=== PATIENT | male | born 1940 | race Caucasian/White ===

== ENCOUNTER 2016-11-07 17:34 | Emergency (ER) | payer MEDICARE, MEDICAID ==
[2016-11-07 17:35] VITALS: BMI 23.3
--- NOTE | 2016-11-07 19:26 | C.PDOC ---
History Of Present Illness 76 y/o male here for Ativan refill. States that he is taking more than usual because he is not sleeping well; but has not discussed this with his prescriber. Next appointment 11/21/16. No other complaints at this time. Time Seen by Provider: 11/07/16 19:13 Chief Complaint (Nursing): Med Refill History Per: Patient History/Exam Limitations: no limitations Onset/Duration Of Symptoms: Unknown Recent travel outside of the [place]: No Additional History Per: Patient Past Medical History Vital Signs: Last Vital Signs Temp 98.2 F 11/07/16 20:04 Pulse 82 11/07/16 22:15 Resp 18 11/07/16 22:15 BP 152/88 H 11/07/16 22:15 Pulse Ox 98 11/07/16 22:15 - Medical History PMH: Anxiety, Asthma, COPD, Diabetes, Emphysema, HTN, Kidney Stones (L kidney stone) Denies: Alzheimer's Disease, Chronic Kidney Disease - [facility] Procedures INFLUENZA VACCINATION (10/28/14) Family History: States: Unknown Family Hx - Social History Hx Tobacco Use: Yes Hx Alcohol Use: No Hx Substance Use: No - Immunization History Hx Tetanus Toxoid Vaccination: Yes Hx Influenza Vaccination: Yes Hx Pneumococcal Vaccination: Yes Review Of Systems Except As Marked, All Systems Reviewed And Found Negative. Physical Exam - Physical Exam Appears: Non-toxic, No Acute Distress Skin: Warm, Dry Eye(s): bilateral: EOMI Nose: No Epistaxis, No Deformity Oral Mucosa: Moist Neck: Supple Chest: Symmetrical, No Deformity Cardiovascular: Rhythm Regular Respiratory: Normal Breath Sounds Extremity: Normal ROM Neurological/Psych: Oriented x3, Normal Speech ED Course And Treatment O2 Sat by Pulse Oximetry: 100 (RA) Pulse Ox Interpretation: Normal Progress Note: Pt was given ativan 2 mg PO and is now requesting ambulance transport to return home. [facility] contacted by RN for transport Medical Decision Making Medical Decision Making: Patient given Ativan 2mg PO. Checked [facility]: patient given Ativan #60 on 10/22/16. Counseled patient on taking prescribed doses of his medications and instructed to speak with his physician. States that he will speak with the prescriber tomorrow. Disposition - Disposition Referrals: Fern Hawk MD [Primary Care Provider] - Disposition: HOME/ ROUTINE Disposition Time: 19:40 Condition: STABLE Additional Instructions: Please follow up with PMD for management Return to ER if worse Instructions: Benzodiazepine Abuse (ED) - Clinical Impression Clinical Impression: Review of medication, Benzodiazepine abuse - Scribe Statement The provider has reviewed the documentation as recorded by the Scribe Blanca Mena
[2016-11-07 20:06] VITALS: RESP 18; TEMP 98.2
[2016-11-07 22:37] VITALS: BP 152/88; PULSE 82
[2016-11-08 04:29] VITALS: O2SAT 100
== END 2016-11-07 22:37 | disposition home or self-care (01) ==
LOC: C.ER 17:34 → SUPCPDRO 17:34 → C.ER 22:37
DX: F19.10 Other psychoactive substance abuse, uncomplicated (principal)

== ENCOUNTER 2018-02-24 13:01 | Inpatient (IN) | payer MEDICARE, OTHER ==
[2018-02-24 13:01] VITALS: BMI 21.4
[2018-02-24] MEDS ORDERED: Albuterol-Ipratrop 3 mg / 0.5 (3 ml) UD INH STA ×2 (13:20)
[2018-02-24] MEDS ORDERED: MethylPREDNISolone 40 mg Vial IVP STA (13:20)
--- NOTE | 2018-02-24 13:28 | C.PDOC ---
History Of Present Illness 77 year old male with a history of COPD and benzodiazepine use presents to the emergency department with complaints of shortness of breath which started yesterday. Patient reports that he was given Duoneb prior to arrival, and states that his "emphysema was acting up". Patient denies fever, and currently reports chest tightness with no other complaints. pt denies abodminal pain, flank pain, n/v. also in er "requesting something to make me sleep" Time Seen by Provider: 02/24/18 13:12 Chief Complaint (Nursing): Shortness Of Breath History Per: Patient History/Exam Limitations: no limitations Onset/Duration Of Symptoms: Days (1) Current Symptoms Are (Timing): Still Present Quality: Tightness Current Respiratory Medications: Other (Duoneb) Associated Symptoms: Other (shortness of breath, chest tightness). denies: Fever Past Medical History Reviewed: Historical Data, Nursing Documentation, Vital Signs Vital Signs: Last Vital Signs Temp 97.6 F 02/25/18 15:37 Pulse 89 02/25/18 16:23 Resp 20 02/25/18 15:37 BP 165/80 H 02/25/18 18:00 Pulse Ox 99 02/25/18 16:23 - Medical History PMH: Anxiety, Asthma, COPD, Depression, Diabetes, Emphysema, HTN, Kidney Stones Denies: Alzheimer's Disease, Arthritis, CHF, Hypercholesterolemia, Hypothyroidism, Pneumonia, Chronic Kidney Disease, Rheumatoid Arthritis - [facility] Procedures DETOXIFICATION SERVICES FOR SUBSTANCE ABUSE TREATMENT (11/10/16) INFLUENZA VACCINATION (10/28/14) Family History: States: No Known Family Hx - Social History Hx Tobacco Use: Yes Hx Alcohol Use: No Hx Substance Use: Yes - Immunization History Hx Tetanus Toxoid Vaccination: Yes Hx Influenza Vaccination: Yes Hx Pneumococcal Vaccination: Yes Review Of Systems Except As Marked, All Systems Reviewed And Found Negative. Constitutional: Negative for: Fever Cardiovascular: Positive for: Other (chest tightness) Respiratory: Positive for: Shortness of Breath Physical Exam - Physical Exam Appears: Non-toxic, No Acute Distress Skin: Warm, Dry Head: Atraumatic, Normacephalic Eye(s): bilateral: Normal Inspection Nose: Normal Oral Mucosa: Moist Neck: Normal, Supple Chest: Symmetrical Cardiovascular: Rhythm Regular, No Murmur Respiratory: No Rales, No Rhonchi, Wheezing (scattered, bilaterally) Gastrointestinal/Abdominal: Normal Exam, Soft, No Tenderness, No Guarding, No Rebound Neurological/Psych: Oriented x3, Normal Speech, Normal Cognition ED Course And Treatment - Laboratory Results Result Diagrams: 02/24/18 14:24 02/24/18 13:51 ECG Rhythm: Sinus Rhythm (94bpm ) ECG Interpretation: Normal Interpretation Of ECG: Sinus rhythm at 94bpm with a first degree AV block, otherwise normal EKG. Medical Decision Making Medical Decision Making: Plan: VBG Shock Panel EKG BNP CMP Troponin CBC PTT Prothrombin Time CXR One View Duoneb 3ml INH Solu-Medrol 125mg IVP Nebulizer Treatment Urinalysis suspect copd- mild la, luekocytosis, no sirs criteria no code sepsis. dr galaviz bedside. ua positive. antibiotics dosed. no pain, abdominal pain/flank pain. dr galaviz bedside accepts for admission. Disposition - Disposition Disposition: HOSPITALIZED Disposition Time: 17:08 Condition: STABLE - Clinical Impression Clinical Impression: COPD (chronic obstructive pulmonary disease), Urinary tract infection - Scribe Statement The provider has reviewed the documentation as recorded by the Scribe (Chadwick Porras) Provider Attestation: All medical record entries made by the Scribe were at my direction and personally dictated by me. I have reviewed the chart and agree that the record accurately reflects my personal performance of the history, physical exam, medical decision making, and the department course for this patient. I have also personally directed, reviewed, and agree with the discharge instructions and disposition. Decision To Admit - Pt Status Changed To: Hospital Disposition Of: Observation - . Bed Request Type: Telemetry Admitting Physician: Arden Galaviz Patient Diagnosis: COPD (chronic obstructive pulmonary disease), Urinary tract infection
[2018-02-24] MEDS ORDERED: Albuterol-Ipratrop 3 mg / 0.5 (3 ml) UD ONE (13:43)
[2018-02-24 13:52] LABS: VENOUS BLOOD GAS BASE EXCESS -1.4 mmol/L (0.0-2.0); VENOUS BLOOD GAS PCO2 36 mmHg (40-60); VENOUS BLOOD GAS PO2 38 mm/Hg (30-55); VENOUS BLOOD PH 7.41 (7.32-7.43)
[2018-02-24] MEDS ORDERED: Sodium Chloride 0.9% 500 ML IV ONE ×2 (13:54→14:06)
[2018-02-24 14:07] LABS: INR 1.1; PROTHROMBIN TIME 11.9 SECONDS (9.7-12.2)
[2018-02-24 14:13] LABS: ALB/GLOB RATIO 1.2 (1.0-2.1); ALBUMIN 4.1 g/dL (3.5-5.0); ALT/SGPT 22 U/L (21-72); AST/SGOT 31 U/L (17-59); BLOOD UREA NITROGEN 26 mg/dL (9-20); CALCIUM 9.1 mg/dl (8.6-10.4); GFR AFRICAN-AMERICAN > 60; GFR NON-AFRICAN AMERICAN > 60
[2018-02-24 14:19] LABS: B-TYPE NATRIURETIC PEPTIDE 477 pg/mL (0-900)
[2018-02-24 14:28] LABS: BASO # 0.2 K/uL (0.0-0.2); BASO % 1.4 % (0.0-2.0); EOS # 0.1 K/uL (0.0-0.7); EOS % 0.5 % (0.0-4.0); LYMPH # 3.1 K/uL (1.0-4.3); LYMPH % 26.1 % (20.0-40.0); MEAN CELL VOLUME 93.7 fL (80.0-94.0); MEAN CORPUSCULAR HEMOGLOBIN 32.4 pg (27.0-31.0); MEAN CORPUSCULAR HGB CONC 34.6 g/dL (33.0-37.0); MEAN PLATELET VOLUME 7.9 fL (7.2-11.7); MONO # 0.8 K/uL (0.0-0.8); MONO % 7.1 % (0.0-10.0); NEUT # 7.6 K/uL (1.8-7.0); NEUT % 64.9 % (50.0-75.0); RBC 3.08 Mil/uL (4.40-5.90); RED CELL DISTRIBUTION WIDTH 15.1 % (11.5-14.5); WHITE BLOOD COUNT 11.7 K/uL (4.8-10.8)
[2018-02-24] MEDS ORDERED: cefTRIAXone IV 1 gm in Dextros 50 ML IVPB STA (14:34)
[2018-02-24] MEDS ORDERED: Azithromycin 500 MG in Sodium Chloride 0.9% 250 ML IVPB STA (14:34)
[2018-02-24] MEDS ORDERED: cefTRIAXone IV 1 gm in Dextros 0 ML IVPB ONE (14:44)
[2018-02-24] MEDS ORDERED: DiphenhydrAMINE 50 mg/ml Inj IVP STA (15:36)
[2018-02-24] MEDS ORDERED: DiphenhydrAMINE 50 mg/ml Inj ONE (15:40)
[2018-02-24 16:23] LABS: SQUAMOUS EPITHIAL < 1 /hpf (0-5); URINE BACTERIA MANY (<OCC); URINE BILIRUBIN NEGATIVE (NEGATIVE); URINE BLOOD NEGATIVE (NEGATIVE); URINE CLARITY Hazy (Clear); URINE COLOR Yellow (YELLOW); URINE GLUCOSE (UA) 1+ mg/dL (Normal); URINE LEUKOCYTE ESTERASE 3+ Leu/uL (Negative); URINE PROTEIN NEGATIVE (NEGATIVE); URINE UROBILINOGEN NORMAL mg/dL (0.2-1.0)
--- NOTE | 2018-02-24 16:30 | RAD ---
PROCEDURE: CHEST RADIOGRAPH, 1 VIEW HISTORY: chest pain COMPARISON: Comparison chest dated 12/16/2014. FINDINGS: Study is slightly limited due to patient rotation to the left side LUNGS: Clear. PLEURA: No pneumothorax or pleural fluid seen. CARDIOVASCULAR: Heart size mildly enlarged OSSEOUS STRUCTURES: No significant abnormalities. Re- demonstrated are the old healed right posterior rib fractures. VISUALIZED UPPER ABDOMEN: Normal. OTHER FINDINGS: None. IMPRESSION: No acute infiltrates
[2018-02-24] MEDS ORDERED: Home Med 1 UNIT (Atorvastatin [Lipitor] 40 MG) PO SCH (16:45)
[2018-02-24] MEDS: (Novolog) Insulin Aspart, Recombinant 100 u/ml 10 ml vial SC SCH ×2 (17:01→21:39)
[2018-02-24] MEDS ORDERED: (Novolog) Insulin Aspart, Recombinant 100 u/ml 10 ml vial ONE (17:25)
[2018-02-24] MEDS: Albuterol-Ipratrop 3 mg / 0.5 (3 ml) UD INH SCH (20:08)
[2018-02-25] MEDS: Albuterol-Ipratrop 3 mg / 0.5 (3 ml) UD INH SCH ×4 (07:48→20:28)
[2018-02-25] MEDS: (Novolog) Insulin Aspart, Recombinant 100 u/ml 10 ml vial SC SCH ×4 (08:30→21:39)
[2018-02-25] MEDS ORDERED: METFORMIN HCL 1000 MG PO SCH (10:00)
[2018-02-25] MEDS: Enoxaparin 40 mg Syringe SC SCH (12:40)
--- NOTE | 2018-02-26 06:55 | HP ---
HISTORY OF PRESENT ILLNESS: Mr. Jones was admitted to the hospital with chief complaint of shortness of breath, cough, weakness, anxiety, and insomnia. The patient has COPD, history of diabetes. The patient came to the ER, advised admission. with insulin ____. SOCIAL HISTORY: The patient is an ex-smoker. PHYSICAL EXAMINATION GENERAL: The patient is awake, alert, and oriented. VITAL SIGNS: Temperature 98, pulse 90. HEENT: Within normal limits. NECK: Supple. CHEST: Symmetrical. HEART: Regular. ABDOMEN: Soft. EXTREMITIES: No edema. IMPRESSION: The patient suffers from chronic obstructive pulmonary disease, bronchitis, anxiety, depression. The patient to get bed rest and supportive care, bronchodilators. Arden Clemons MD
[2018-02-26] MEDS: (Novolog) Insulin Aspart, Recombinant 100 u/ml 10 ml vial SC SCH ×5 (07:37→21:40)
[2018-02-26] MEDS: Albuterol-Ipratrop 3 mg / 0.5 (3 ml) UD INH SCH ×4 (07:44→19:43)
[2018-02-26] MEDS: Enoxaparin 40 mg Syringe SC SCH (09:22)
[2018-02-26] MEDS ORDERED: Pneumococcal 23-Valent Vaccine IM ONE (10:00)
[2018-02-26 11:17] LABS: BASO % 0.4 % (0.0-2.0); EOS # 0.1 K/uL (0.0-0.7); EOS % 0.6 % (0.0-4.0); LYMPH # 3.5 K/uL (1.0-4.3); LYMPH % 32.7 % (20.0-40.0); MEAN CELL VOLUME 94.8 fL (80.0-94.0); MEAN CORPUSCULAR HEMOGLOBIN 32.5 pg (27.0-31.0); MEAN CORPUSCULAR HGB CONC 34.3 g/dL (33.0-37.0); MEAN PLATELET VOLUME 8.3 fL (7.2-11.7); MONO % 9.5 % (0.0-10.0); NEUT # 6.1 K/uL (1.8-7.0); NEUT % 56.8 % (50.0-75.0); RBC 3.68 Mil/uL (4.40-5.90); RED CELL DISTRIBUTION WIDTH 15.5 % (11.5-14.5); WHITE BLOOD COUNT 10.7 K/uL (4.8-10.8)
[2018-02-26 11:34] LABS: ALB/GLOB RATIO 1.4 (1.0-2.1); ALBUMIN 3.9 g/dL (3.5-5.0); ALT/SGPT 31 U/L (21-72); AST/SGOT 20 U/L (17-59); BLOOD UREA NITROGEN 29 mg/dL (9-20); CALCIUM 8.9 mg/dl (8.6-10.4); GFR AFRICAN-AMERICAN > 60; GFR NON-AFRICAN AMERICAN > 60
--- NOTE | 2018-02-26 11:39 | CP.PCM.CON ---
History of Present Illness - History of Present Illness History of Present Illness: 77 year old male with a history of COPD and benzodiazepine use presents to the emergency department with complaints of shortness of breath which started yesterday. Patient reports that he was given Duoneb prior to arrival, and states that his "emphysema was acting up". Patient denies fever, and currently reports chest tightness with no other complaints. pt denies abodminal pain, flank pain, n/v. also in er "requesting something to make me sleep" referred for ID eval + ESBL UTI - Medical History PMH: Anxiety, Asthma, COPD, Depression, Diabetes, Emphysema, HTN, Kidney Stones Denies: Alzheimer's Disease, Arthritis, CHF, Hypercholesterolemia, Hypothyroidism, Pneumonia, Chronic Kidney Disease, Rheumatoid Arthritis - [facility] Procedures DETOXIFICATION SERVICES FOR SUBSTANCE ABUSE TREATMENT (11/10/16) INFLUENZA VACCINATION (10/28/14) Past Patient History - Infectious Disease Hx of Infectious Diseases: None - Past Medical History & Family History Past Medical History?: Yes - Past Social History Smoking Status: Light Smoker < 10 Cigarettes Daily - CARDIAC Hx Congestive Heart Failure: No Hx Hypercholesterolemia: No Hx Hypertension: Yes - PULMONARY Hx Asthma: Yes Hx Chronic Obstructive Pulmonary Disease (COPD): Yes Hx Emphysema: Yes Hx Pneumonia: No - NEUROLOGICAL Hx Alzheimer's Disease: No - HEENT Hx HEENT Problems: No - RENAL Hx Chronic Kidney Disease: No Hx Kidney Stones: Yes - ENDOCRINE/METABOLIC Hx Hypothyroidism: No - HEMATOLOGICAL/ONCOLOGICAL Hx Blood Disorders: No Hx Blood Transfusions: No - INTEGUMENTARY Hx Dermatological Problems: No - MUSCULOSKELETAL/RHEUMATOLOGICAL Hx Arthritis: No Hx Rheumatoid Arthritis: No - GASTROINTESTINAL Hx Gastrointestinal Disorders: No Hx Gastroesophageal Reflux: No - GENITOURINARY/GYNECOLOGICAL Hx Genitourinary Disorders: Yes Hx Incontinence: Yes Hx Prostate Problems: Yes Hx Urinary Tract Infection: Yes - PSYCHIATRIC Hx Anxiety: Yes Hx Depression: Yes Hx Substance Use: Yes - SURGICAL HISTORY Hx Surgeries: Yes Hx Orthopedic Surgery: Yes (15 years ago) - ANESTHESIA Hx Anesthesia: Yes Hx Anesthesia Reactions: No Hx Malignant Hyperthermia: No Meds Allergies/Adverse Reactions: Allergies Allergy/AdvReac Type Severity Reaction Status Date / Time No Known Allergies Allergy Verified 02/24/18 13:17 - Medications Medications: Current Medications Acetaminophen (Tylenol 325mg Tab) 650 mg PO Q6H PRN PRN Reason: Headache Albuterol/Ipratropium (Duoneb 3 Mg/0.5 Mg (3 Ml) Ud) 3 ml INH RQID [facility] Last Admin: 02/26/18 07:44 Dose: 3 ml Amlodipine Besylate (Norvasc) 10 mg PO DAILY [facility] Last Admin: 02/26/18 09:20 Dose: 10 mg Aspirin (Ecotrin) 81 mg PO 0800 [facility] Last Admin: 02/26/18 08:45 Dose: 81 mg Benzonatate (Tessalon Perles) 100 mg PO TID [facility] Last Admin: 02/26/18 09:23 Dose: 100 mg Docusate Sodium (Colace) 100 mg PO DAILY [facility] Last Admin: 02/26/18 09:21 Dose: 100 mg Enoxaparin Sodium (Lovenox) 40 mg SC DAILY [facility] Last Admin: 02/26/18 09:22 Dose: 40 mg Meropenem 1 gm/ Sodium (Chloride) 100 mls @ 100 mls/hr IVPB Q8 [facility] PRN Reason: Protocol Insulin Aspart (Novolog) 0 unit SC ACHS [facility] PRN Reason: Protocol Last Admin: 02/26/18 08:13 Dose: 2 unit Lisinopril (Zestril) 20 mg PO DAILY [facility] Last Admin: 02/26/18 09:51 Dose: 20 mg Lorazepam (Ativan) 1 mg PO Q8 [facility] Last Admin: 02/26/18 05:45 Dose: 1 mg Metformin HCl (Glucophage) 1,000 mg PO DAILY [facility] Last Admin: 02/26/18 09:20 Dose: 1,000 mg Metoprolol Tartrate (Lopressor) 25 mg PO BID [facility] Last Admin: 02/26/18 09:18 Dose: 25 mg Mirtazapine (Remeron) 7.5 mg PO [facility] Last Admin: 02/25/18 21:39 Dose: 7.5 mg Rosuvastatin Calcium (Crestor) 20 mg PO [facility] Last Admin: 02/25/18 21:39 Dose: 20 mg Tamsulosin HCl (Flomax) 0.4 mg PO DAILY [facility] Last Admin: 02/26/18 09:20 Dose: 0.4 mg Physical Exam - Constitutional Appears: No Acute Distress, Chronically Ill - Head Exam Head Exam: ATRAUMATIC, NORMAL INSPECTION, NORMOCEPHALIC - Eye Exam Eye Exam: EOMI, Normal appearance, PERRL Pupil Exam: NORMAL ACCOMODATION, PERRL - ENT Exam ENT Exam: Mucous Membranes Moist, Normal Exam - Neck Exam Neck exam: Positive for: Normal Inspection - Respiratory Exam Respiratory Exam: Clear to Auscultation Bilateral, NORMAL BREATHING PATTERN - Cardiovascular Exam Cardiovascular Exam: REGULAR RHYTHM - GI/Abdominal Exam GI & Abdominal Exam: Normal Bowel Sounds, Soft. absent: Tenderness - Rectal Exam Rectal Exam: NORMAL INSPECTION - Exam Exam: Circumcision, Scrotal Swelling - Extremities Exam Extremities exam: Positive for: normal inspection - Back Exam Back exam: NORMAL INSPECTION - Neurological Exam Neurological exam: Alert, CN II-XII Intact, Normal Gait, Oriented x3, Reflexes Normal - Psychiatric Exam Psychiatric exam: Normal Affect, Normal Mood - Skin Skin Exam: Dry, Intact, Normal Color, Warm Results - Vital Signs Recent Vital Signs: Last Vital Signs Temp 98.7 F 02/26/18 07:00 Pulse 96 H 02/26/18 09:17 Resp 20 02/26/18 07:00 BP 166/79 H 02/26/18 09:18 Pulse Ox 96 02/26/18 07:00 - Labs Result Diagrams: 02/26/18 11:06 02/26/18 11:06 Labs: Laboratory Results - last 24 hr 02/25/18 02/25/18 02/25/18 06:22 11:21 17:36 WBC RBC Hgb Hct MCV MCH MCHC RDW Plt Count MPV Neut % (Auto) Lymph % (Auto) Beckham % (Auto) Eos % (Auto) Baso % (Auto) Neut # (Auto) Lymph # (Auto) Beckham # (Auto) Eos # (Auto) Baso # (Auto) Sodium Potassium Chloride Carbon Dioxide Anion Gap BUN Creatinine Est GFR ( Amer) Est GFR (Non-Af Amer) POC Glucose (mg/dL) 290 H 285 H 150 H Random Glucose Calcium Total Bilirubin AST ALT Alkaline Phosphatase Total Protein Albumin Globulin Albumin/Globulin Ratio 02/25/18 02/26/18 02/26/18 21:17 06:15 11:06 WBC 10.7 RBC 3.68 L Hgb 12.0 D Hct 34.9 L MCV 94.8 H MCH 32.5 H MCHC 34.3 RDW 15.5 H Plt Count 450 H MPV 8.3 Neut % (Auto) 56.8 Lymph % (Auto) 32.7 Beckham % (Auto) 9.5 Eos % (Auto) 0.6 Baso % (Auto) 0.4 Neut # (Auto) 6.1 Lymph # (Auto) 3.5 Beckham # (Auto) 1.0 H Eos # (Auto) 0.1 Baso # (Auto) 0.0 Sodium Potassium Chloride Carbon Dioxide Anion Gap BUN Creatinine Est GFR ( Amer) Est GFR (Non-Af Amer) POC Glucose (mg/dL) 141 H 179 H Random Glucose Calcium Total Bilirubin AST ALT Alkaline Phosphatase Total Protein Albumin Globulin Albumin/Globulin Ratio 02/26/18 11:06 WBC RBC Hgb Hct MCV MCH MCHC RDW Plt Count MPV Neut % (Auto) Lymph % (Auto) Beckham % (Auto) Eos % (Auto) Baso % (Auto) Neut # (Auto) Lymph # (Auto) Beckham # (Auto) Eos # (Auto) Baso # (Auto) Sodium 139 Potassium 3.9 Chloride 103 Carbon Dioxide 24 Anion Gap 17 BUN 29 H Creatinine 0.8 Est GFR ( Amer) > 60 Est GFR (Non-Af Amer) > 60 POC Glucose (mg/dL) Random Glucose 192 H Calcium 8.9 Total Bilirubin 0.5 AST 20 ALT 31 Alkaline Phosphatase 72 Total Protein 6.8 Albumin 3.9 Globulin 2.8 Albumin/Globulin Ratio 1.4 Assessment & Plan (1) Urinary tract infection Status: Acute (2) COPD (chronic obstructive pulmonary disease) Status: Chronic Priority: Low - Assessment and Plan (Free Text) Assessment: RECC EVAL, IV MER[facility] CONTACT [facility] FOR ESBL
[2018-02-26] MEDS: Meropenem 1 GM in Sodium Chloride 0.9% 100 ML IVPB SCH ×2 (13:45→21:43)
--- NOTE | 2018-02-26 16:15 | CP.PCM.PN ---
Subjective - Date & Time of Evaluation Date of Evaluation: 02/26/18 Time of Evaluation: 10:09 - Subjective Subjective: PGY2 Medicine Note for Dr. Clemons Patient seen and examined at bedside this morning. No acute events overnight. Patient is resting comfortably in bed. Patient complains of intermittent right sided flank pain. He is urinating without complaints of increased frequency or pain. He is tolerating his diet. Denies fevers, chills, nausea, vomiting, diarrhea, constipation, chest pain, shortness of breath, palpitations or headaches. PMH: HTN, HLD, DM, BPH PSH: Cardiac cath (negative for blockage), Screw placement for left leg fracture (location unclear) SHx: 1/2 - 1 ppd x 30 years. Denies alcohol, illicits/IVDA Lives alone in [place] Ambulates with a cane for short distances and a walker for longer distances FHx: Mother (renal disease), Father (HTN) Objective - Vital Signs/Intake and Output Vital Signs (last 24 hours): Temp Pulse Resp BP Pulse Ox 98.7 F 95 H 20 166/79 H 96 02/26/18 07:00 02/26/18 14:00 02/26/18 07:00 02/26/18 09:18 02/26/18 07:00 Intake and Output: 02/26/18 02/26/18 06:59 18:59 Intake Total 450 Output Total 700 Balance -700 450 - Medications Medications: Current Medications Acetaminophen (Tylenol 325mg Tab) 650 mg PO Q6H PRN PRN Reason: Headache Albuterol/Ipratropium (Duoneb 3 Mg/0.5 Mg (3 Ml) Ud) 3 ml INH RQID [facility] Last Admin: 02/26/18 13:13 Dose: Not Given Amlodipine Besylate (Norvasc) 10 mg PO DAILY [facility] Last Admin: 02/26/18 09:20 Dose: 10 mg Aspirin (Ecotrin) 81 mg PO 0800 [facility] Last Admin: 02/26/18 08:45 Dose: 81 mg Benzonatate (Tessalon Perles) 100 mg PO TID [facility] Last Admin: 02/26/18 13:46 Dose: 100 mg Docusate Sodium (Colace) 100 mg PO DAILY [facility] Last Admin: 02/26/18 09:21 Dose: 100 mg Enoxaparin Sodium (Lovenox) 40 mg SC DAILY [facility] Last Admin: 02/26/18 09:22 Dose: 40 mg Meropenem 1 gm/ Sodium (Chloride) 100 mls @ 100 mls/hr IVPB Q8 [facility] PRN Reason: Protocol Last Admin: 02/26/18 13:45 Dose: 100 mls/hr Insulin Aspart (Novolog) 0 unit SC ACHS [facility] PRN Reason: Protocol Last Admin: 02/26/18 11:52 Dose: 2 unit Lisinopril (Zestril) 20 mg PO DAILY [facility] Last Admin: 02/26/18 09:51 Dose: 20 mg Lorazepam (Ativan) 1 mg PO Q8 [facility] Last Admin: 02/26/18 13:42 Dose: Not Given Metformin HCl (Glucophage) 1,000 mg PO DAILY [facility] Last Admin: 02/26/18 09:20 Dose: 1,000 mg Metoprolol Tartrate (Lopressor) 25 mg PO BID [facility] Last Admin: 02/26/18 09:18 Dose: 25 mg Mirtazapine (Remeron) 7.5 mg PO HS [facility] Last Admin: 02/25/18 21:39 Dose: 7.5 mg Rosuvastatin Calcium (Crestor) 20 mg PO HS [facility] Last Admin: 02/25/18 21:39 Dose: 20 mg Tamsulosin HCl (Flomax) 0.4 mg PO DAILY [facility] Last Admin: 02/26/18 09:20 Dose: 0.4 mg - Labs Labs: 02/26/18 11:06 02/26/18 11:06 PT 11.9 SECONDS (9.7-12.2) 02/24/18 13:51 INR 1.1 02/24/18 13:51 APTT 20 SECONDS (21-34) L 02/24/18 13:51 - Constitutional Appears: Non-toxic, No Acute Distress - Head Exam Head Exam: ATRAUMATIC - Eye Exam Eye Exam: Normal appearance - ENT Exam ENT Exam: Mucous Membranes Moist - Respiratory Exam Respiratory Exam: Decreased Breath Sounds, Clear to Ausculation Bilateral, NORMAL BREATHING PATTERN. absent: Accessory Muscle Use, Rales, Rhonchi, Wheezes , Respiratory Distress - Cardiovascular Exam Cardiovascular Exam: REGULAR RHYTHM, +S1, +S2 - GI/Abdominal Exam GI & Abdominal Exam: Soft. absent: Distended, Firm, Guarding, Rigid, Tenderness - Extremities Exam Extremities Exam: absent: Calf Tenderness, Pedal Edema - Back Exam Back Exam: CVA tenderness (R). absent: CVA tenderness (L) - Neurological Exam Neurological Exam: Alert, Awake, CN II-XII Intact, Oriented x3 - Psychiatric Exam Psychiatric exam: Normal Affect, Normal Mood - Skin Skin Exam: Dry, Warm Assessment and Plan - Assessment and Plan (Free Text) Plan: COPD Exacerbation CXR 02/24 - No infiltrates noted. Blood Culture: no growth at 48 hours Duoneb 3mL QID Tessalon Perles 100mg PO TID UTI ID consulted, Dr. Martinez - help appreciated Urine Culture (02/24/18): ESBL+ E. Coli Meropenem 1gm IVPB q8h HTN Amlodipine 10 mg PO daily Aspirin 81mg PO daily Lisinopril 20g PO daily Metoprolol Tart 25mg PO BID Diabetes Continue to monitor Hgb A1c 7.2 (09/19/16) Metformin 1,000 mg PO daily HLD Crestor 20mg PO HS BPH Tamsuloin 0.4mg PO daily Prophylactic Care Lovenox 40mg SC daily Continue home Remeron 7.5mg PO HS Ativan 1mg PO q8h Case discussed with Dr. Clemons All medical management per Dr. Kaci Parsons [place] PGY2
[2018-02-26 17:16] LABS: BASO # 0.1 K/uL (0.0-0.2); BASO % 1.1 % (0.0-2.0); EOS # 0.1 K/uL (0.0-0.7); HEMOGLOBIN 12.4 g/dL (12.0-18.0); LYMPH # 3.9 K/uL (1.0-4.3); LYMPH % 34.2 % (20.0-40.0); MEAN CELL VOLUME 94.4 fL (80.0-94.0); MEAN CORPUSCULAR HEMOGLOBIN 32.6 pg (27.0-31.0); MEAN CORPUSCULAR HGB CONC 34.5 g/dL (33.0-37.0); NEUT # 6.2 K/uL (1.8-7.0); NEUT % 54.7 % (50.0-75.0); RBC 3.79 Mil/uL (4.40-5.90); RED CELL DISTRIBUTION WIDTH 15.3 % (11.5-14.5); WHITE BLOOD COUNT 11.4 K/uL (4.8-10.8)
[2018-02-26 17:41] LABS: ALB/GLOB RATIO 1.4 (1.0-2.1)
[2018-02-26 17:43] LABS: ALT/SGPT 28 U/L (21-72); AST/SGOT 42 U/L (17-59); BLOOD UREA NITROGEN 28 mg/dL (9-20); CALCIUM 8.8 mg/dl (8.6-10.4); GFR AFRICAN-AMERICAN > 60; GFR NON-AFRICAN AMERICAN > 60
[2018-02-27] MEDS: Meropenem 1 GM in Sodium Chloride 0.9% 100 ML IVPB SCH ×3 (05:59→21:13)
[2018-02-27] MEDS: Albuterol-Ipratrop 3 mg / 0.5 (3 ml) UD INH SCH ×4 (07:23→20:03)
[2018-02-27 07:27] LABS: BASO # 0.1 K/uL (0.0-0.2); BASO % 0.8 % (0.0-2.0); EOS # 0.1 K/uL (0.0-0.7); EOS % 0.7 % (0.0-4.0); HEMOGLOBIN 12.8 g/dL (12.0-18.0); LYMPH # 3.1 K/uL (1.0-4.3); LYMPH % 25.5 % (20.0-40.0); MEAN CELL VOLUME 94.2 fL (80.0-94.0); MEAN CORPUSCULAR HEMOGLOBIN 31.7 pg (27.0-31.0); MEAN CORPUSCULAR HGB CONC 33.6 g/dL (33.0-37.0); MEAN PLATELET VOLUME 8.2 fL (7.2-11.7); MONO # 1.1 K/uL (0.0-0.8); MONO % 9.4 % (0.0-10.0); NEUT # 7.7 K/uL (1.8-7.0); NEUT % 63.6 % (50.0-75.0); RBC 4.03 Mil/uL (4.40-5.90); RED CELL DISTRIBUTION WIDTH 15.4 % (11.5-14.5); WHITE BLOOD COUNT 12.1 K/uL (4.8-10.8)
--- NOTE | 2018-02-27 07:38 | CP.PCM.PN ---
Subjective - Date & Time of Evaluation Date of Evaluation: 02/27/18 Time of Evaluation: 07:38 - Subjective Subjective: PGY2 Medicine Note for Dr. Clemons Patient seen and examined this morning at bedside. No acute events overnight. Patient's breathing is greatly improved. He is still experiencing intermittent right flank pain and some pain with urination. The pains are improving. He has no other complaints at this time. Denies fevers, chills, nausea, vomiting, diarrhea, constipation, chest pain, shortness of breath, palpitations, abdominal pain, headaches, numbness or tingling. Objective - Vital Signs/Intake and Output Vital Signs (last 24 hours): Temp Pulse Resp BP Pulse Ox 98.1 F 91 H 20 169/78 H 97 02/26/18 23:35 02/27/18 04:05 02/26/18 23:35 02/26/18 23:35 02/26/18 23:35 Intake and Output: 02/27/18 02/27/18 06:59 18:59 Intake Total 200 Balance 200 - Medications Medications: Current Medications Acetaminophen (Tylenol 325mg Tab) 650 mg PO Q6H PRN PRN Reason: Headache Albuterol/Ipratropium (Duoneb 3 Mg/0.5 Mg (3 Ml) Ud) 3 ml INH RQID [facility] Last Admin: 02/27/18 07:23 Dose: 3 ml Amlodipine Besylate (Norvasc) 10 mg PO DAILY [facility] Last Admin: 02/26/18 09:20 Dose: 10 mg Aspirin (Ecotrin) 81 mg PO 0800 [facility] Last Admin: 02/26/18 08:45 Dose: 81 mg Benzonatate (Tessalon Perles) 100 mg PO TID [facility] Last Admin: 02/26/18 17:49 Dose: 100 mg Docusate Sodium (Colace) 100 mg PO DAILY [facility] Last Admin: 02/26/18 09:21 Dose: 100 mg Enoxaparin Sodium (Lovenox) 40 mg SC DAILY [facility] Last Admin: 02/26/18 09:22 Dose: 40 mg Meropenem 1 gm/ Sodium (Chloride) 100 mls @ 100 mls/hr IVPB Q8 [facility] PRN Reason: Protocol Last Admin: 02/27/18 05:59 Dose: 100 mls/hr Insulin Aspart (Novolog) 0 unit SC ACHS [facility] PRN Reason: Protocol Last Admin: 02/26/18 21:40 Dose: Not Given Lisinopril (Zestril) 20 mg PO DAILY [facility] Last Admin: 02/26/18 09:51 Dose: 20 mg Lorazepam (Ativan) 1 mg PO Q8 [facility] Last Admin: 02/27/18 05:59 Dose: 1 mg Metformin HCl (Glucophage) 1,000 mg PO DAILY [facility] Last Admin: 02/26/18 09:20 Dose: 1,000 mg Metoprolol Tartrate (Lopressor) 25 mg PO BID [facility] Last Admin: 02/26/18 17:50 Dose: 25 mg Mirtazapine (Remeron) 7.5 mg PO HS [facility] Last Admin: 02/26/18 21:44 Dose: 7.5 mg Rosuvastatin Calcium (Crestor) 20 mg PO [facility] Last Admin: 02/26/18 21:43 Dose: 20 mg Tamsulosin HCl (Flomax) 0.4 mg PO DAILY [facility] Last Admin: 02/26/18 09:20 Dose: 0.4 mg - Labs Labs: 02/27/18 06:39 02/26/18 17:09 PT 11.9 SECONDS (9.7-12.2) 02/24/18 13:51 INR 1.1 02/24/18 13:51 APTT 20 SECONDS (21-34) L 02/24/18 13:51 - Constitutional Appears: Non-toxic, No Acute Distress - Head Exam Head Exam: NORMOCEPHALIC - Eye Exam Eye Exam: Normal appearance - ENT Exam ENT Exam: Mucous Membranes Moist - Neck Exam Neck Exam: absent: Lymphadenopathy - Respiratory Exam Respiratory Exam: Clear to Ausculation Bilateral, NORMAL BREATHING PATTERN. absent: Accessory Muscle Use, Rales, Rhonchi, Wheezes, Respiratory Distress - Cardiovascular Exam Cardiovascular Exam: REGULAR RHYTHM, +S1, +S2 - GI/Abdominal Exam GI & Abdominal Exam: Soft. absent: Distended, Firm, Guarding, Rigid - Extremities Exam Extremities Exam: absent: Calf Tenderness, Pedal Edema - Neurological Exam Neurological Exam: Alert, Awake, CN II-XII Intact, Oriented x3 - Psychiatric Exam Psychiatric exam: Normal Affect, Normal Mood - Skin Skin Exam: Dry, Warm Assessment and Plan - Assessment and Plan (Free Text) Plan: COPD Exacerbation (improving) CXR 02/24 - No infiltrates noted. Blood Culture: no growth at 48 hours Duoneb 3mL QID Tessalon Perles 100mg PO TID UTI ID consulted, Dr. Martinez - help appreciated Urine Culture (02/24/18): ESBL+ E. Coli Meropenem 1gm IVPB q8h (started on 02/26) HTN Amlodipine 10 mg PO daily Aspirin 81mg PO daily Lisinopril 20g PO daily Metoprolol Tart 25mg PO BID Diabetes Continue to monitor Hgb A1c 7.2 (09/19/16) Metformin 1,000 mg PO daily HLD Crestor 20mg PO HS BPH Tamsuloin 0.4mg PO daily Hx of Anxiety Ativan 1mg PO q8h Prophylactic Care Lovenox 40mg SC daily Continue home Remeron 7.5mg PO HS Case discussed with Dr. Clemons All medical management per Dr. Kaci Parsons Yahir PGY2
[2018-02-27 07:52] LABS: ALB/GLOB RATIO 1.4 (1.0-2.1); ALT/SGPT 43 U/L (21-72); AST/SGOT 27 U/L (17-59); BLOOD UREA NITROGEN 30 mg/dL (9-20); CALCIUM 9.1 mg/dl (8.6-10.4); GFR AFRICAN-AMERICAN > 60; GFR NON-AFRICAN AMERICAN > 60
[2018-02-27] MEDS: (Novolog) Insulin Aspart, Recombinant 100 u/ml 10 ml vial SC SCH ×4 (08:28→21:14)
[2018-02-27] MEDS: Enoxaparin 40 mg Syringe SC SCH (10:07)
--- NOTE | 2018-02-27 10:49 | CP.PCM.PN ---
Subjective - Date & Time of Evaluation Date of Evaluation: 02/27/18 Time of Evaluation: 08:00 - Subjective Subjective: e coli esbl in urine merrem added Objective - Vital Signs/Intake and Output Vital Signs (last 24 hours): Temp Pulse Resp BP Pulse Ox 98.0 F 106 H 18 136/72 100 02/27/18 07:10 02/27/18 09:22 02/27/18 07:10 02/27/18 09:26 02/27/18 07:10 Intake and Output: 02/27/18 02/27/18 06:59 18:59 Intake Total 200 Balance 200 - Medications Medications: Current Medications Acetaminophen (Tylenol 325mg Tab) 650 mg PO Q6H PRN PRN Reason: Headache Albuterol/Ipratropium (Duoneb 3 Mg/0.5 Mg (3 Ml) Ud) 3 ml INH RQID [facility] Last Admin: 02/27/18 07:23 Dose: 3 ml Amlodipine Besylate (Norvasc) 10 mg PO DAILY [facility] Last Admin: 02/27/18 09:27 Dose: 10 mg Aspirin (Ecotrin) 81 mg PO 0800 [facility] Last Admin: 02/27/18 08:29 Dose: 81 mg Benzonatate (Tessalon Perles) 100 mg PO TID [facility] Last Admin: 02/27/18 09:28 Dose: 100 mg Docusate Sodium (Colace) 100 mg PO DAILY [facility] Last Admin: 02/27/18 09:27 Dose: 100 mg Enoxaparin Sodium (Lovenox) 40 mg SC DAILY [facility] Last Admin: 02/27/18 10:07 Dose: 40 mg Meropenem 1 gm/ Sodium (Chloride) 100 mls @ 100 mls/hr IVPB Q8 [facility] PRN Reason: Protocol Last Admin: 02/27/18 05:59 Dose: 100 mls/hr Insulin Aspart (Novolog) 0 unit SC ACHS [facility] PRN Reason: Protocol Last Admin: 02/27/18 08:28 Dose: 3 unit Lisinopril (Zestril) 20 mg PO DAILY [facility] Last Admin: 02/27/18 09:27 Dose: 20 mg Lorazepam (Ativan) 1 mg PO Q8 [facility] Last Admin: 02/27/18 05:59 Dose: 1 mg Metformin HCl (Glucophage) 1,000 mg PO DAILY [facility] Last Admin: 02/27/18 09:26 Dose: 1,000 mg Metoprolol Tartrate (Lopressor) 25 mg PO BID [facility] Last Admin: 02/27/18 09:26 Dose: 25 mg Mirtazapine (Remeron) 7.5 mg PO HS [facility] Last Admin: 02/26/18 21:44 Dose: 7.5 mg Rosuvastatin Calcium (Crestor) 20 mg PO HS [facility] Last Admin: 02/26/18 21:43 Dose: 20 mg Tamsulosin HCl (Flomax) 0.4 mg PO DAILY [facility] Last Admin: 02/27/18 09:27 Dose: 0.4 mg - Labs Labs: 02/27/18 06:39 02/27/18 06:39 PT 11.9 SECONDS (9.7-12.2) 02/24/18 13:51 INR 1.1 02/24/18 13:51 APTT 20 SECONDS (21-34) L 02/24/18 13:51 - Constitutional Appears: Non-toxic, Chronically Ill - Head Exam Head Exam: NORMOCEPHALIC - Eye Exam Eye Exam: PERRL - ENT Exam ENT Exam: Mucous Membranes Dry - Neck Exam Neck Exam: absent: Lymphadenopathy - Respiratory Exam Respiratory Exam: Decreased Breath Sounds - Cardiovascular Exam Cardiovascular Exam: REGULAR RHYTHM - GI/Abdominal Exam GI & Abdominal Exam: Distended - Rectal Exam Rectal Exam: Deferred - Exam Exam: NORMAL INSPECTION - Extremities Exam Extremities Exam: absent: Pedal Edema - Back Exam Back Exam: absent: CVA tenderness (L), CVA tenderness (R) Assessment and Plan (1) Urinary tract infection Status: Acute (2) COPD (chronic obstructive pulmonary disease) Status: Chronic
[2018-02-27] MEDS ORDERED: Sodium Chloride 0.9% 1,000 ML IV SCH (15:00)
[2018-02-28] MEDS ORDERED: Aluminum Hydroxide/Magnesium Hydroxide Susp (30 mL) PO ONE (01:35)
[2018-02-28] MEDS: Meropenem 1 GM in Sodium Chloride 0.9% 100 ML IVPB SCH ×3 (05:28→21:41)
--- NOTE | 2018-02-28 07:05 | CP.PCM.PN ---
Subjective - Date & Time of Evaluation Date of Evaluation: 02/28/18 Time of Evaluation: 07:05 - Subjective Subjective: PGY2 Medicine Note for Dr. Clemons Patient seen and examined this morning at bedside. No acute events overnight. Patient states he is feeling well but is anxious at times and a feeling of his heart "racing". He is asking for an increase in his ativan to 2mg. Patient was told due that this is not going to happen because he has a hx of asking for increasing amounts of benzos and for his safety we will not provide any large amounts. He states he understands. Patient also reports resolved right flank pain but is still experiencing mild dysuria. Denies fevers, chills, nausea, vomiting, diarrhea, constipation, chest pain, shortness of breath, abdominal pain, numbness or tingling. Objective - Vital Signs/Intake and Output Vital Signs (last 24 hours): Temp Pulse Resp BP Pulse Ox 98.1 F 108 H 20 123/71 96 02/27/18 23:30 02/28/18 04:04 02/27/18 23:30 02/27/18 23:30 02/27/18 23:30 Intake and Output: 02/28/18 02/28/18 06:59 18:59 Intake Total 300 Output Total 600 Balance -300 - Medications Medications: Current Medications Acetaminophen (Tylenol 325mg Tab) 650 mg PO Q6H PRN PRN Reason: Headache Last Admin: 02/27/18 17:30 Dose: 650 mg Albuterol/Ipratropium (Duoneb 3 Mg/0.5 Mg (3 Ml) Ud) 3 ml INH RQID [facility] Last Admin: 02/27/18 20:03 Dose: 3 ml Amlodipine Besylate (Norvasc) 10 mg PO DAILY [facility] Last Admin: 02/27/18 09:27 Dose: 10 mg Aspirin (Ecotrin) 81 mg PO 0800 [facility] Last Admin: 02/27/18 08:29 Dose: 81 mg Benzonatate (Tessalon Perles) 100 mg PO TID [facility] Last Admin: 02/27/18 17:31 Dose: 100 mg Docusate Sodium (Colace) 100 mg PO DAILY [facility] Last Admin: 02/27/18 09:27 Dose: 100 mg Enoxaparin Sodium (Lovenox) 40 mg SC DAILY [facility] Last Admin: 02/27/18 10:07 Dose: 40 mg Meropenem 1 gm/ Sodium (Chloride) 100 mls @ 100 mls/hr IVPB Q8 [facility] PRN Reason: Protocol Last Admin: 02/28/18 05:28 Dose: 100 mls/hr Insulin Aspart (Novolog) 0 unit SC ACHS [facility] PRN Reason: Protocol Last Admin: 02/27/18 21:14 Dose: Not Given Lisinopril (Zestril) 20 mg PO DAILY [facility] Last Admin: 02/27/18 09:27 Dose: 20 mg Lorazepam (Ativan) 1 mg PO Q8 [facility] Last Admin: 02/28/18 05:58 Dose: 1 mg Metformin HCl (Glucophage) 1,000 mg PO DAILY [facility] Last Admin: 02/27/18 09:26 Dose: 1,000 mg Metoprolol Tartrate (Lopressor) 25 mg PO BID [facility] Last Admin: 02/27/18 17:30 Dose: 25 mg Mirtazapine (Remeron) 7.5 mg PO HS [facility] Last Admin: 02/27/18 21:13 Dose: 7.5 mg Rosuvastatin Calcium (Crestor) 20 mg PO HS [facility] Last Admin: 02/27/18 21:13 Dose: 20 mg Tamsulosin HCl (Flomax) 0.4 mg PO DAILY [facility] Last Admin: 02/27/18 09:27 Dose: 0.4 mg - Labs Labs: 02/27/18 06:39 02/27/18 06:39 PT 11.9 SECONDS (9.7-12.2) 02/24/18 13:51 INR 1.1 02/24/18 13:51 APTT 20 SECONDS (21-34) L 02/24/18 13:51 - Constitutional Appears: Non-toxic, No Acute Distress - Head Exam Head Exam: NORMOCEPHALIC - Eye Exam Eye Exam: EOMI, Normal appearance, PERRL. absent: Scleral icterus Pupil Exam: NORMAL ACCOMODATION - ENT Exam ENT Exam: Mucous Membranes Moist - Neck Exam Neck Exam: absent: Lymphadenopathy - Respiratory Exam Respiratory Exam: Clear to Ausculation Bilateral, NORMAL BREATHING PATTERN. absent: Accessory Muscle Use, Decreased Breath Sounds, Rales, Rhonchi, Wheezes, Respiratory Distress - Cardiovascular Exam Cardiovascular Exam: Tachycardia (~117 on tele, patient denies palpitations at this time. resting comfortably), +S1, +S2 - GI/Abdominal Exam GI & Abdominal Exam: Soft, Normal Bowel Sounds. absent: Distended, Firm, Guarding, Rigid, Tenderness - Extremities Exam Extremities Exam: absent: Calf Tenderness, Pedal Edema - Back Exam Back Exam: CVA tenderness (R) (mild - improved ). absent: CVA tenderness (L) - Neurological Exam Neurological Exam: Alert, Awake, CN II-XII Intact, Oriented x3 - Psychiatric Exam Psychiatric exam: Normal Affect - Skin Skin Exam: Dry, Warm Assessment and Plan - Assessment and Plan (Free Text) Plan: COPD Exacerbation (improving) CXR 02/24 - No infiltrates noted. Blood Culture: no growth at 3 days Duoneb 3mL QID Tessalon Perles 100mg PO TID UTI ID consulted, Dr. Martinez - help appreciated Urine Culture (02/24/18): ESBL+ E. Coli Meropenem 1gm IVPB q8h (started on 02/26) HTN Amlodipine 10 mg PO daily Aspirin 81mg PO daily Lisinopril 20g PO daily Metoprolol Tart 25mg PO BID Diabetes Continue to monitor Hgb A1c 7.2 (09/19/16) Metformin 1,000 mg PO daily HLD Crestor 20mg PO HS BPH Tamsuloin 0.4mg PO daily Hx of Anxiety Ativan 1mg PO q8h Prophylactic Care Lovenox 40mg SC daily Colace 100mg PO daily Continue home Remeron 7.5mg PO HS DISPO: Patient is awaiting approval to be discharged to [facility]. Case discussed with Dr. Clemons All medical management per Dr. Kaci Parsons Yahir PGY2
[2018-02-28] MEDS: (Novolog) Insulin Aspart, Recombinant 100 u/ml 10 ml vial SC SCH ×4 (07:39→21:41)
[2018-02-28] MEDS: Albuterol-Ipratrop 3 mg / 0.5 (3 ml) UD INH SCH ×4 (07:42→19:41)
[2018-02-28 08:53] LABS: BASO # 0.2 K/uL (0.0-0.2); BASO % 1.2 % (0.0-2.0); EOS # 0.1 K/uL (0.0-0.7); EOS % 0.5 % (0.0-4.0); HEMOGLOBIN 12.8 g/dL (12.0-18.0); LYMPH # 3.8 K/uL (1.0-4.3); LYMPH % 26.8 % (20.0-40.0); MEAN CELL VOLUME 94.7 fL (80.0-94.0); MEAN CORPUSCULAR HEMOGLOBIN 32.7 pg (27.0-31.0); MEAN CORPUSCULAR HGB CONC 34.5 g/dL (33.0-37.0); MEAN PLATELET VOLUME 8.3 fL (7.2-11.7); MONO # 1.1 K/uL (0.0-0.8); MONO % 8.1 % (0.0-10.0); NEUT # 8.9 K/uL (1.8-7.0); NEUT % 63.4 % (50.0-75.0); NRBC % 0.1 % (0.0-2.0); RBC 3.92 Mil/uL (4.40-5.90); RED CELL DISTRIBUTION WIDTH 14.9 % (11.5-14.5); WHITE BLOOD COUNT 14.1 K/uL (4.8-10.8)
[2018-02-28 09:07] LABS: ALB/GLOB RATIO 1.4 (1.0-2.1); ALT/SGPT 52 U/L (21-72); AST/SGOT 23 U/L (17-59); BLOOD UREA NITROGEN 34 mg/dL (9-20); CALCIUM 9.5 mg/dl (8.6-10.4); GFR AFRICAN-AMERICAN > 60; GFR NON-AFRICAN AMERICAN > 60
[2018-02-28] MEDS: Enoxaparin 40 mg Syringe SC SCH (09:11)
[2018-02-28] MEDS: Pantoprazole 40 mg EC Tab PO SCH (14:47)
[2018-02-28] MEDS: Aluminum Hydroxide/Magnesium Hydroxide Susp (30 mL) PO PRN (14:47)
--- NOTE | 2018-02-28 15:23 | CP.PCM.PN ---
Subjective - Date & Time of Evaluation Date of Evaluation: 02/28/18 Time of Evaluation: 06:00 - Subjective Subjective: AFEB ALERT NAD C/O PAIN LEFT ABD WANTS TO SEE A GI DOCTOR Objective - Vital Signs/Intake and Output Vital Signs (last 24 hours): Temp Pulse Resp BP Pulse Ox 98.1 F 116 H 20 147/81 97 02/28/18 07:10 02/28/18 09:08 02/28/18 07:10 02/28/18 09:10 02/28/18 07:10 Intake and Output: 02/28/18 02/28/18 06:59 18:59 Intake Total 300 550 Output Total 600 Balance -300 550 - Medications Medications: Current Medications Acetaminophen (Tylenol 325mg Tab) 650 mg PO Q6H PRN PRN Reason: Headache Last Admin: 02/27/18 17:30 Dose: 650 mg Al Hydrox/Mg Hydrox/Simethicone (Maalox 30 Ml) 30 ml PO Q12H PRN PRN Reason: Indigestion / Heartburn Last Admin: 02/28/18 14:47 Dose: 30 ml Albuterol/Ipratropium (Duoneb 3 Mg/0.5 Mg (3 Ml) Ud) 3 ml INH RQID [facility] BEDS [facility] Last Admin: 02/28/18 11:30 Dose: 3 ml Amlodipine Besylate (Norvasc) 10 mg PO DAILY [facility] Last Admin: 02/28/18 09:11 Dose: 10 mg Aspirin (Ecotrin) 81 mg PO 0800 [facility] Last Admin: 02/28/18 07:39 Dose: 81 mg Benzonatate (Tessalon Perles) 100 mg PO TID [facility] Last Admin: 02/28/18 13:32 Dose: 100 mg Docusate Sodium (Colace) 100 mg PO DAILY [facility] Last Admin: 02/28/18 09:11 Dose: 100 mg Enoxaparin Sodium (Lovenox) 40 mg SC DAILY [facility] Last Admin: 02/28/18 09:11 Dose: 40 mg Meropenem 1 gm/ Sodium (Chloride) 100 mls @ 100 mls/hr IVPB Q8 [facility] PRN Reason: Protocol Last Admin: 02/28/18 13:32 Dose: 100 mls/hr Insulin Aspart (Novolog) 0 unit SC ACHS [facility] PRN Reason: Protocol Last Admin: 02/28/18 12:14 Dose: 3 unit Lisinopril (Zestril) 20 mg PO DAILY [facility] Last Admin: 02/28/18 09:11 Dose: 20 mg Lorazepam (Ativan) 1 mg PO Q8 [facility] Last Admin: 02/28/18 12:59 Dose: 1 mg Metformin HCl (Glucophage) 1,000 mg PO DAILY [facility] Last Admin: 02/28/18 09:10 Dose: 1,000 mg Metoprolol Tartrate (Lopressor) 25 mg PO BID [facility] Last Admin: 02/28/18 09:10 Dose: 25 mg Mirtazapine (Remeron) 7.5 mg PO HS [facility] Last Admin: 02/27/18 21:13 Dose: 7.5 mg Pantoprazole Sodium (Protonix Ec Tab) 40 mg PO DAILY [facility] Last Admin: 02/28/18 14:47 Dose: 40 mg Pneumococcal Polyvalent Vaccine (Pneumovax 23 Vaccine) 0.5 ml IM .ONCE ONE Stop: 03/01/18 12:01 Rosuvastatin Calcium (Crestor) 20 mg PO [facility] Last Admin: 02/27/18 21:13 Dose: 20 mg Tamsulosin HCl (Flomax) 0.4 mg PO DAILY [facility] Last Admin: 02/28/18 09:10 Dose: 0.4 mg - Labs Labs: 02/28/18 08:35 02/28/18 08:35 PT 11.9 SECONDS (9.7-12.2) 02/24/18 13:51 INR 1.1 02/24/18 13:51 APTT 20 SECONDS (21-34) L 02/24/18 13:51 - Constitutional Appears: Non-toxic, Chronically Ill - Head Exam Head Exam: NORMOCEPHALIC - Eye Exam Eye Exam: absent: Scleral icterus - ENT Exam ENT Exam: Mucous Membranes Dry - Neck Exam Neck Exam: absent: Lymphadenopathy - Respiratory Exam Respiratory Exam: Decreased Breath Sounds - Cardiovascular Exam Cardiovascular Exam: REGULAR RHYTHM - GI/Abdominal Exam GI & Abdominal Exam: Distended Assessment and Plan (1) Urinary tract infection Status: Acute (2) COPD (chronic obstructive pulmonary disease) Status: Chronic - Assessment and Plan (Free Text) Assessment: RECC: gi EVAL BRYCE CONT IV RX
[2018-03-01] MEDS: Meropenem 1 GM in Sodium Chloride 0.9% 100 ML IVPB SCH ×3 (06:14→21:06)
[2018-03-01] MEDS: Albuterol-Ipratrop 3 mg / 0.5 (3 ml) UD INH SCH ×3 (07:41→20:45)
[2018-03-01] MEDS: (Novolog) Insulin Aspart, Recombinant 100 u/ml 10 ml vial SC SCH ×4 (08:04→23:11)
[2018-03-01 08:53] LABS: BASO # 0.1 K/uL (0.0-0.2); EOS # 0.1 K/uL (0.0-0.7); EOS % 0.8 % (0.0-4.0); HEMOGLOBIN 11.7 g/dL (12.0-18.0); LYMPH # 4.1 K/uL (1.0-4.3); LYMPH % 33.9 % (20.0-40.0); MEAN CELL VOLUME 94.9 fL (80.0-94.0); MEAN CORPUSCULAR HEMOGLOBIN 32.2 pg (27.0-31.0); MEAN CORPUSCULAR HGB CONC 33.9 g/dL (33.0-37.0); MEAN PLATELET VOLUME 8.8 fL (7.2-11.7); MONO # 1.2 K/uL (0.0-0.8); MONO % 10.3 % (0.0-10.0); NEUT # 6.6 K/uL (1.8-7.0); RBC 3.63 Mil/uL (4.40-5.90); RED CELL DISTRIBUTION WIDTH 15.3 % (11.5-14.5); WHITE BLOOD COUNT 12.1 K/uL (4.8-10.8)
[2018-03-01 09:04] LABS: ALB/GLOB RATIO 1.3 (1.0-2.1); ALBUMIN 3.7 g/dL (3.5-5.0); ALT/SGPT 46 U/L (21-72); AST/SGOT 18 U/L (17-59); BLOOD UREA NITROGEN 35 mg/dL (9-20); CALCIUM 8.8 mg/dl (8.6-10.4); GFR AFRICAN-AMERICAN > 60; GFR NON-AFRICAN AMERICAN > 60
--- NOTE | 2018-03-01 10:18 | CP.PCM.PN ---
Subjective - Date & Time of Evaluation Date of Evaluation: 03/01/18 Time of Evaluation: 10:09 - Subjective Subjective: PGY2 Medicine Note for Dr. Clemons Patient seen and examined this morning at bedside. No acute events overnight. Patient is resting comfortably in bed, stating he slept well. The pain on his right side has resolved and he is no longer experiencing pain with urination. He is tolerating is diet and and has no complaints. Denies fevers, chills, nausea, vomiting, diarrhea, constipation, chest pain, shortness of breath, palpitations, abdominal pain, numbness or tingling. Objective - Vital Signs/Intake and Output Vital Signs (last 24 hours): Temp Pulse Resp BP Pulse Ox 97.7 F 94 H 20 114/62 100 03/01/18 07:10 03/01/18 07:10 03/01/18 07:10 03/01/18 07:10 03/01/18 07:10 Intake and Output: 03/01/18 03/01/18 06:59 18:59 Intake Total 220 Output Total 650 Balance -430 - Medications Medications: Current Medications Acetaminophen (Tylenol 325mg Tab) 650 mg PO Q6H PRN PRN Reason: Headache Last Admin: 02/27/18 17:30 Dose: 650 mg Al Hydrox/Mg Hydrox/Simethicone (Maalox 30 Ml) 30 ml PO Q12H PRN PRN Reason: Indigestion / Heartburn Last Admin: 02/28/18 14:47 Dose: 30 ml Albuterol/Ipratropium (Duoneb 3 Mg/0.5 Mg (3 Ml) Ud) 3 ml INH RQID [facility] Last Admin: 03/01/18 07:41 Dose: 3 ml Amlodipine Besylate (Norvasc) 10 mg PO DAILY [facility] Last Admin: 02/28/18 09:11 Dose: 10 mg Aspirin (Ecotrin) 81 mg PO 0800 [facility] Last Admin: 03/01/18 08:03 Dose: 81 mg Benzonatate (Tessalon Perles) 100 mg PO TID [facility] Last Admin: 02/28/18 17:23 Dose: 100 mg Docusate Sodium (Colace) 100 mg PO DAILY [facility] Last Admin: 02/28/18 09:11 Dose: 100 mg Enoxaparin Sodium (Lovenox) 40 mg SC DAILY [facility] Last Admin: 02/28/18 09:11 Dose: 40 mg Meropenem 1 gm/ Sodium (Chloride) 100 mls @ 100 mls/hr IVPB Q8 [facility] PRN Reason: Protocol Last Admin: 03/01/18 06:14 Dose: 100 mls/hr Insulin Aspart (Novolog) 0 unit SC ACHS [facility] PRN Reason: Protocol Last Admin: 03/01/18 08:04 Dose: 3 unit Lisinopril (Zestril) 20 mg PO DAILY [facility] Last Admin: 02/28/18 09:11 Dose: 20 mg Lorazepam (Ativan) 1 mg PO Q8 [facility] Last Admin: 03/01/18 06:19 Dose: 1 mg Metformin HCl (Glucophage) 1,000 mg PO DAILY [facility] Last Admin: 02/28/18 09:10 Dose: 1,000 mg Metoprolol Tartrate (Lopressor) 25 mg PO BID [facility] Last Admin: 02/28/18 17:23 Dose: 25 mg Mirtazapine (Remeron) 7.5 mg PO [facility] Last Admin: 02/28/18 21:40 Dose: 7.5 mg Pantoprazole Sodium (Protonix Ec Tab) 40 mg PO DAILY [facility] Last Admin: 02/28/18 14:47 Dose: 40 mg Pneumococcal Polyvalent Vaccine (Pneumovax 23 Vaccine) 0.5 ml IM .ONCE ONE Stop: 03/01/18 12:01 Rosuvastatin Calcium (Crestor) 20 mg PO HS [facility] Last Admin: 02/27/18 21:13 Dose: 20 mg Tamsulosin HCl (Flomax) 0.4 mg PO DAILY [facility] Last Admin: 02/28/18 09:10 Dose: 0.4 mg - Labs Labs: 03/01/18 08:32 03/01/18 08:32 PT 11.9 SECONDS (9.7-12.2) 02/24/18 13:51 INR 1.1 02/24/18 13:51 APTT 20 SECONDS (21-34) L 02/24/18 13:51 - Constitutional Appears: Non-toxic, No Acute Distress - Head Exam Head Exam: ATRAUMATIC, NORMOCEPHALIC - Eye Exam Eye Exam: EOMI, Normal appearance, PERRL Pupil Exam: NORMAL ACCOMODATION - ENT Exam ENT Exam: Mucous Membranes Moist - Neck Exam Neck Exam: absent: Lymphadenopathy - Respiratory Exam Respiratory Exam: Clear to Ausculation Bilateral, NORMAL BREATHING PATTERN. absent: Accessory Muscle Use, Rales, Rhonchi, Wheezes, Respiratory Distress - Cardiovascular Exam Cardiovascular Exam: REGULAR RHYTHM, +S1, +S2 - GI/Abdominal Exam GI & Abdominal Exam: Soft. absent: Distended, Guarding, Tenderness - Extremities Exam Extremities Exam: absent: Calf Tenderness, Pedal Edema - Neurological Exam Neurological Exam: Alert, Awake, Oriented x3 - Psychiatric Exam Psychiatric exam: Normal Affect, Normal Mood - Skin Skin Exam: Dry, Warm Assessment and Plan - Assessment and Plan (Free Text) Plan: COPD Exacerbation (resolved) CXR 02/24 - No infiltrates noted. Blood Culture: no growth at 5 days Duoneb 3mL QID Tessalon Perles 100mg PO TID UTI ID consulted, Dr. Martinez - help appreciated Urine Culture (02/24/18): ESBL+ E. Coli Meropenem 1gm IVPB q8h (started on 02/26) - continue for 7 more days. HTN Amlodipine 10 mg PO daily Aspirin 81mg PO daily Lisinopril 20g PO daily Metoprolol Tart 25mg PO BID Diabetes Continue to monitor Hgb A1c 7.2 (09/19/16) Metformin 1,000 mg PO daily HLD Crestor 20mg PO HS BPH Tamsuloin 0.4mg PO daily Hx of Anxiety/Depression Ativan 1mg PO q8h Continue home Remeron 7.5mg PO HS Prophylactic Care Lovenox 40mg SC daily Colace 100mg PO daily DISPO: Patient is awaiting approval to be discharged to [facility]. He needs to continue abx for 7 more days. Depending on placement, patient may/may not need midline/picc. Case discussed with Dr. Clemons All medical management per Dr. Kaci Parsons Yahir PGY2
[2018-03-01] MEDS: Enoxaparin 40 mg Syringe SC SCH (10:45)
[2018-03-01] MEDS: Pantoprazole 40 mg EC Tab PO SCH (10:46)
[2018-03-01] MEDS ORDERED: Pneumococcal 23-Valent Vaccine IM ONE (12:00)
[2018-03-01] MEDS: Aluminum Hydroxide/Magnesium Hydroxide Susp (30 mL) PO PRN (16:04)
--- NOTE | 2018-03-01 18:15 | CP.PCM.PN ---
Subjective - Date & Time of Evaluation Date of Evaluation: 03/01/18 Time of Evaluation: 09:00 - Subjective Subjective: afeb on IV Merrem day 3 c/o pain weak nad will need to cont IV Merrem for min 7 daysconsider eval and imaging if not done yet Objective - Vital Signs/Intake and Output Vital Signs (last 24 hours): Temp Pulse Resp BP Pulse Ox 98.1 F 97 H 20 129/69 97 03/01/18 16:05 03/01/18 16:05 03/01/18 16:05 03/01/18 17:45 03/01/18 16:05 Intake and Output: 03/01/18 03/01/18 06:59 18:59 Intake Total 220 Output Total 650 Balance -430 - Medications Medications: Current Medications Acetaminophen (Tylenol 325mg Tab) 650 mg PO Q6H PRN PRN Reason: Headache Last Admin: 02/27/18 17:30 Dose: 650 mg Al Hydrox/Mg Hydrox/Simethicone (Maalox 30 Ml) 30 ml PO Q12H PRN PRN Reason: Indigestion / Heartburn Last Admin: 03/01/18 16:04 Dose: 30 ml Albuterol/Ipratropium (Duoneb 3 Mg/0.5 Mg (3 Ml) Ud) 3 ml INH RQID [facility] Last Admin: 03/01/18 11:17 Dose: Not Given Amlodipine Besylate (Norvasc) 10 mg PO DAILY [facility] Last Admin: 03/01/18 10:47 Dose: 10 mg Aspirin (Ecotrin) 81 mg PO 0800 [facility] Last Admin: 03/01/18 08:03 Dose: 81 mg Benzonatate (Tessalon Perles) 100 mg PO TID [facility] Last Admin: 03/01/18 17:44 Dose: 100 mg Docusate Sodium (Colace) 100 mg PO DAILY [facility] Last Admin: 03/01/18 10:47 Dose: 100 mg Enoxaparin Sodium (Lovenox) 40 mg SC DAILY [facility] Last Admin: 03/01/18 10:45 Dose: 40 mg Meropenem 1 gm/ Sodium (Chloride) 100 mls @ 100 mls/hr IVPB Q8 [facility] PRN Reason: Protocol Last Admin: 03/01/18 14:41 Dose: 100 mls/hr Insulin Aspart (Novolog) 0 unit SC ACHS [facility] PRN Reason: Protocol Last Admin: 03/01/18 16:59 Dose: Not Given Lisinopril (Zestril) 20 mg PO DAILY [facility] Last Admin: 03/01/18 10:47 Dose: 20 mg Lorazepam (Ativan) 1 mg PO Q8 [facility] Last Admin: 03/01/18 13:21 Dose: 1 mg Metformin HCl (Glucophage) 1,000 mg PO DAILY [facility] Last Admin: 03/01/18 10:46 Dose: 1,000 mg Metoprolol Tartrate (Lopressor) 25 mg PO BID [facility] Last Admin: 03/01/18 17:45 Dose: 25 mg Mirtazapine (Remeron) 7.5 mg PO HS [facility] Last Admin: 02/28/18 21:40 Dose: 7.5 mg Nicotine (Nicoderm Cq) 1 patch TD DAILY [facility] Last Admin: 03/01/18 17:44 Dose: 1 patch Pantoprazole Sodium (Protonix Ec Tab) 40 mg PO DAILY [facility] Last Admin: 03/01/18 10:46 Dose: 40 mg Rosuvastatin Calcium (Crestor) 20 mg PO HS [facility] Last Admin: 02/27/18 21:13 Dose: 20 mg Tamsulosin HCl (Flomax) 0.4 mg PO DAILY [facility] Last Admin: 03/01/18 10:46 Dose: 0.4 mg - Labs Labs: 03/01/18 08:32 03/01/18 08:32 PT 11.9 SECONDS (9.7-12.2) 02/24/18 13:51 INR 1.1 02/24/18 13:51 APTT 20 SECONDS (21-34) L 02/24/18 13:51 - Constitutional Appears: Non-toxic, Chronically Ill - Head Exam Head Exam: NORMOCEPHALIC - Eye Exam Eye Exam: PERRL. absent: Scleral icterus - ENT Exam ENT Exam: Normal External Ear Exam - Neck Exam Neck Exam: absent: Lymphadenopathy - Respiratory Exam Respiratory Exam: Decreased Breath Sounds - Cardiovascular Exam Cardiovascular Exam: REGULAR RHYTHM - GI/Abdominal Exam GI & Abdominal Exam: Distended, Soft. absent: Tenderness - Rectal Exam Rectal Exam: Deferred - Exam Exam: NORMAL INSPECTION - Extremities Exam Extremities Exam: absent: Pedal Edema - Back Exam Back Exam: absent: CVA tenderness (L), CVA tenderness (R) - Neurological Exam Neurological Exam: Alert, Awake, Oriented x3 - Psychiatric Exam Psychiatric exam: Depressed - Skin Skin Exam: Dry Assessment and Plan (1) Urinary tract infection Status: Acute (2) COPD (chronic obstructive pulmonary disease) Status: Chronic - Assessment and Plan (Free Text) Assessment: afeb on IV Merrem day 3 c/o pain weak nad will need to cont IV Merrem for min 7 daysconsider eval and imaging if not done yet Plan: consider eval
[2018-03-02] MEDS ORDERED: DiphenhydrAMINE 50 mg/ml Inj IVP ONE (01:28)
[2018-03-02] MEDS: Aluminum Hydroxide/Magnesium Hydroxide Susp (30 mL) PO PRN (02:31)
[2018-03-02] MEDS: Meropenem 1 GM in Sodium Chloride 0.9% 100 ML IVPB SCH ×2 (05:07→13:24)
[2018-03-02 06:22] LABS: SQUAMOUS EPITHIAL 10 /hpf (0-5); URINE AMORPHOUS SEDIMENT RARE /ul (<OCC); URINE BILIRUBIN NEGATIVE (NEGATIVE); URINE BLOOD NEGATIVE (NEGATIVE); URINE CLARITY Hazy (Clear); URINE COLOR Yellow (YELLOW); URINE GLUCOSE (UA) NORMAL (Normal); URINE LEUKOCYTE ESTERASE 3+ Leu/uL (Negative); URINE PROTEIN NEGATIVE (NEGATIVE); URINE UROBILINOGEN NORMAL mg/dL (0.2-1.0)
[2018-03-02 06:45] LABS: BASO # 0.1 K/uL (0.0-0.2); BASO % 0.5 % (0.0-2.0); EOS # 0.1 K/uL (0.0-0.7); EOS % 0.8 % (0.0-4.0); HEMOGLOBIN 11.2 g/dL (12.0-18.0); LYMPH # 2.8 K/uL (1.0-4.3); LYMPH % 27.1 % (20.0-40.0); MEAN CELL VOLUME 94.1 fL (80.0-94.0); MEAN CORPUSCULAR HEMOGLOBIN 32.7 pg (27.0-31.0); MEAN CORPUSCULAR HGB CONC 34.7 g/dL (33.0-37.0); MEAN PLATELET VOLUME 8.5 fL (7.2-11.7); MONO # 1.1 K/uL (0.0-0.8); MONO % 10.9 % (0.0-10.0); NEUT # 6.3 K/uL (1.8-7.0); NEUT % 60.7 % (50.0-75.0); RBC 3.44 Mil/uL (4.40-5.90); RED CELL DISTRIBUTION WIDTH 14.9 % (11.5-14.5); WHITE BLOOD COUNT 10.4 K/uL (4.8-10.8)
[2018-03-02 07:28] LABS: ALB/GLOB RATIO 1.4 (1.0-2.1); ALBUMIN 3.7 g/dL (3.5-5.0); ALT/SGPT 45 U/L (21-72); AST/SGOT 25 U/L (17-59); BLOOD UREA NITROGEN 31 mg/dL (9-20); CALCIUM 8.8 mg/dl (8.6-10.4); GFR AFRICAN-AMERICAN > 60; GFR NON-AFRICAN AMERICAN > 60
--- NOTE | 2018-03-02 07:50 | CP.PCM.PN ---
Subjective - Date & Time of Evaluation Date of Evaluation: 03/02/18 Time of Evaluation: 07:50 - Subjective Subjective: Internal Medicine Progress Note - Dr Clemons Service Patient seen and examined at bedside. Per nursing no acute events overnight. Patient is requesting specifically Ativan 2mg IVP. Emotional support provided. Patient wishes to be discharged, informed him that we are waiting for authorization. He offers no complaints at this time. Denies fevers, chills, headaches, dizziness, cp, palpitations, sob, abdominal pain, changes in bowel habits. Objective - Vital Signs/Intake and Output Vital Signs (last 24 hours): Temp Pulse Resp BP Pulse Ox 98 F 96 H 20 135/82 97 03/02/18 00:26 03/02/18 00:26 03/02/18 00:26 03/02/18 00:26 03/02/18 00:26 Intake and Output: 03/02/18 03/02/18 06:59 18:59 Intake Total 300 Balance 300 - Medications Medications: Current Medications Acetaminophen (Tylenol 325mg Tab) 650 mg PO Q6H PRN PRN Reason: Headache Last Admin: 03/02/18 05:06 Dose: 650 mg Al Hydrox/Mg Hydrox/Simethicone (Maalox 30 Ml) 30 ml PO Q12H PRN PRN Reason: Indigestion / Heartburn Last Admin: 03/02/18 02:31 Dose: 30 ml Amlodipine Besylate (Norvasc) 10 mg PO DAILY [facility] Last Admin: 03/01/18 10:47 Dose: 10 mg Aspirin (Ecotrin) 81 mg PO 0800 [facility] Last Admin: 03/01/18 08:03 Dose: 81 mg Benzonatate (Tessalon Perles) 100 mg PO TID [facility] Last Admin: 03/01/18 17:44 Dose: 100 mg Docusate Sodium (Colace) 100 mg PO DAILY [facility] Last Admin: 03/01/18 10:47 Dose: 100 mg Enoxaparin Sodium (Lovenox) 40 mg SC DAILY [facility] Last Admin: 03/01/18 10:45 Dose: 40 mg Meropenem 1 gm/ Sodium (Chloride) 100 mls @ 100 mls/hr IVPB Q8 [facility] PRN Reason: Protocol Last Admin: 03/02/18 05:07 Dose: 100 mls/hr Insulin Aspart (Novolog) 0 unit SC ACHS [facility] PRN Reason: Protocol Last Admin: 03/01/18 23:11 Dose: Not Given Lisinopril (Zestril) 20 mg PO DAILY [facility] Last Admin: 03/01/18 10:47 Dose: 20 mg Lorazepam (Ativan) 1 mg PO Q8 [facility] Last Admin: 03/02/18 05:07 Dose: 1 mg Metformin HCl (Glucophage) 1,000 mg PO DAILY [facility] Last Admin: 03/01/18 10:46 Dose: 1,000 mg Metoprolol Tartrate (Lopressor) 25 mg PO BID [facility] Last Admin: 03/01/18 17:45 Dose: 25 mg Mirtazapine (Remeron) 7.5 mg PO HS [facility] Last Admin: 03/01/18 21:05 Dose: 7.5 mg Nicotine (Nicoderm Cq) 1 patch TD DAILY [facility] Last Admin: 03/01/18 17:44 Dose: 1 patch Pantoprazole Sodium (Protonix Ec Tab) 40 mg PO DAILY [facility] Last Admin: 03/01/18 10:46 Dose: 40 mg Rosuvastatin Calcium (Crestor) 20 mg PO HS [facility] Last Admin: 03/01/18 21:04 Dose: 20 mg Tamsulosin HCl (Flomax) 0.4 mg PO DAILY [facility] Last Admin: 03/01/18 10:46 Dose: 0.4 mg - Labs Labs: 03/02/18 06:38 03/02/18 06:38 PT 11.9 SECONDS (9.7-12.2) 02/24/18 13:51 INR 1.1 02/24/18 13:51 APTT 20 SECONDS (21-34) L 02/24/18 13:51 - Additional Findings Additional findings: - Constitutional Appears: Non-toxic, No Acute Distress - Head Exam Head Exam: ATRAUMATIC, NORMOCEPHALIC - Eye Exam Eye Exam: EOMI, Normal appearance, PERRL Pupil Exam: NORMAL ACCOMODATION - ENT Exam ENT Exam: Mucous Membranes Moist - Neck Exam Neck Exam: absent: Lymphadenopathy - Respiratory Exam Respiratory Exam: Clear to Ausculation Bilateral, NORMAL BREATHING PATTERN. absent: Accessory Muscle Use, Rales, Rhonchi, Wheezes, Respiratory Distress - Cardiovascular Exam Cardiovascular Exam: REGULAR RHYTHM, +S1, +S2 - GI/Abdominal Exam GI & Abdominal Exam: Soft. absent: Distended, Guarding, Tenderness - Extremities Exam Extremities Exam: absent: Calf Tenderness, Pedal Edema - Neurological Exam Neurological Exam: Alert, Awake, Oriented x3 - Psychiatric Exam Psychiatric exam: Normal Affect, Normal Mood - Skin Skin Exam: Dry, Warm Assessment and Plan - Assessment and Plan (Free Text) Assessment: COPD Exacerbation (resolved) CXR 02/24 - No infiltrates noted. Blood Culture: no growth at 5 days Duoneb 3mL QID Tessalon Perles 100mg PO TID UTI ID consulted, Dr. Martinez - help appreciated Urine Culture (02/24/18): ESBL+ E. Coli Meropenem 1gm IVPB q8h (started on 02/26) - continue for 3 more days. HTN Amlodipine 10 mg PO daily Aspirin 81mg PO daily Lisinopril 20mg PO daily Metoprolol Tart 25mg PO BID Diabetes Continue to monitor Hgb A1c 7.2 (09/19/16) Metformin 1,000 mg PO daily HLD Crestor 20mg PO HS BPH Tamsuloin 0.4mg PO daily Hx of Anxiety/Depression Ativan 1mg PO q8h Continue Home Remeron 7.5mg PO HS Prophylactic Care Lovenox 40mg SC daily Colace 100mg PO daily DISPO: Patient is awaiting approval to be discharged to [facility]. He needs to continue IV Merrem for 3 more days. Recommend repeat UA and Urine culture after course of antibiotics is completed. Patient to follow up with PMD within 1 week. Plan discussed with Dr Clemons. Brandee Leslie DO PGY-2
[2018-03-02] MEDS: (Novolog) Insulin Aspart, Recombinant 100 u/ml 10 ml vial SC SCH ×3 (08:27→17:08)
[2018-03-02] MEDS: Pantoprazole 40 mg EC Tab PO SCH (09:26)
[2018-03-02] MEDS: Enoxaparin 40 mg Syringe SC SCH (09:26)
--- NOTE | 2018-03-02 10:35 | US ---
Date of service: 03/01/2018 PROCEDURE: Ultrasound of the Kidneys HISTORY: r/o pyelonephritis, hydronephrosis COMPARISON: None available. TECHNIQUE: Sonogram of the kidneys. FINDINGS: RIGHT KIDNEY: Measures: 4.7 x 11.2 cm. Normal in size, contour and echogenicity. No stone, solid mass lesion or hydronephrosis visualized. LEFT KIDNEY: Measures: 5.4 x 11.3 cm. Renal cortical atrophy noted. Multiple parapelvic cysts identified. Lower pole calculi identified within the distended collecting system. The calculus measures 10 mm. Additional calculus in midpole collecting system 10 mm. OTHER FINDINGS: Urinary bladder assessment: Prevoid volume: 324.3 ml Postvoid residual: 88.2 ml Intrinsic, mural, perivesical abnormalities: None Ureteral jets: Not visualized. IMPRESSION: Renal cortical atrophy left kidney. Multiple calculi within a dilated left collecting system. Possible staghorn configuration not completely visualized. Unremarkable right kidney. Normal capacitance urinary bladder. Large postvoid residual.
--- NOTE | 2018-03-02 16:21 | CP.PCM.PN ---
Subjective - Date & Time of Evaluation Date of Evaluation: 03/02/18 Time of Evaluation: 08:00 - Subjective Subjective: afeb on IV Merrem day 3 c/o pain weak nad will need to cont IV Merrem Objective - Vital Signs/Intake and Output Vital Signs (last 24 hours): Temp Pulse Resp BP Pulse Ox 98.2 F 103 H 18 137/74 98 03/02/18 08:25 03/02/18 08:25 03/02/18 08:25 03/02/18 09:26 03/02/18 08:25 Intake and Output: 03/02/18 03/02/18 06:59 18:59 Intake Total 300 Balance 300 - Medications Medications: Current Medications Acetaminophen (Tylenol 325mg Tab) 650 mg PO Q6H PRN PRN Reason: Headache Last Admin: 03/02/18 05:06 Dose: 650 mg Al Hydrox/Mg Hydrox/Simethicone (Maalox 30 Ml) 30 ml PO Q12H PRN PRN Reason: Indigestion / Heartburn Last Admin: 03/02/18 02:31 Dose: 30 ml Amlodipine Besylate (Norvasc) 10 mg PO DAILY [facility] Last Admin: 03/02/18 09:26 Dose: 10 mg Aspirin (Ecotrin) 81 mg PO 0800 [facility] Last Admin: 03/02/18 08:26 Dose: 81 mg Benzonatate (Tessalon Perles) 100 mg PO TID [facility] Last Admin: 03/02/18 13:24 Dose: 100 mg Docusate Sodium (Colace) 100 mg PO DAILY [facility] Last Admin: 03/02/18 09:26 Dose: 100 mg Enoxaparin Sodium (Lovenox) 40 mg SC DAILY [facility] Last Admin: 03/02/18 09:26 Dose: 40 mg Meropenem 1 gm/ Sodium (Chloride) 100 mls @ 100 mls/hr IVPB Q8 [facility] PRN Reason: Protocol Last Admin: 03/02/18 13:24 Dose: 100 mls/hr Insulin Aspart (Novolog) 0 unit SC ACHS [facility] PRN Reason: Protocol Last Admin: 03/02/18 13:25 Dose: Not Given Lisinopril (Zestril) 20 mg PO DAILY [facility] Last Admin: 03/02/18 09:26 Dose: 20 mg Lorazepam (Ativan) 1 mg PO Q8 [facility] Last Admin: 03/02/18 13:24 Dose: 1 mg Metformin HCl (Glucophage) 1,000 mg PO DAILY [facility] Last Admin: 03/02/18 09:26 Dose: 1,000 mg Metoprolol Tartrate (Lopressor) 25 mg PO BID [facility] Last Admin: 03/02/18 09:26 Dose: 25 mg Mirtazapine (Remeron) 7.5 mg PO HS [facility] Last Admin: 03/01/18 21:05 Dose: 7.5 mg Nicotine (Nicoderm Cq) 1 patch TD DAILY [facility] Last Admin: 03/02/18 10:17 Dose: 1 patch Pantoprazole Sodium (Protonix Ec Tab) 40 mg PO DAILY [facility] Last Admin: 03/02/18 09:26 Dose: 40 mg Rosuvastatin Calcium (Crestor) 20 mg PO HS [facility] Last Admin: 03/01/18 21:04 Dose: 20 mg Tamsulosin HCl (Flomax) 0.4 mg PO DAILY [facility] Last Admin: 03/02/18 09:26 Dose: 0.4 mg - Labs Labs: 03/02/18 06:38 03/02/18 06:38 PT 11.9 SECONDS (9.7-12.2) 02/24/18 13:51 INR 1.1 02/24/18 13:51 APTT 20 SECONDS (21-34) L 02/24/18 13:51 - Constitutional Appears: Well - Head Exam Head Exam: ATRAUMATIC, NORMAL INSPECTION, NORMOCEPHALIC - Eye Exam Eye Exam: EOMI, Normal appearance, PERRL Pupil Exam: NORMAL ACCOMODATION, PERRL - ENT Exam ENT Exam: Mucous Membranes Moist, Normal Exam - Neck Exam Neck Exam: Full ROM, Normal Inspection. absent: Lymphadenopathy - Respiratory Exam Respiratory Exam: Clear to Ausculation Bilateral, NORMAL BREATHING PATTERN - Cardiovascular Exam Cardiovascular Exam: REGULAR RHYTHM, +S1, +S2. absent: Murmur - GI/Abdominal Exam GI & Abdominal Exam: Soft, Normal Bowel Sounds. absent: Tenderness - Rectal Exam Rectal Exam: NORMAL INSPECTION - Exam Exam: Circumcision, NORMAL INSPECTION - Extremities Exam Extremities Exam: Full ROM, Normal Capillary Refill, Normal Inspection. absent : Joint Swelling, Pedal Edema - Back Exam Back Exam: NORMAL INSPECTION - Neurological Exam Neurological Exam: Alert, Awake, CN II-XII Intact, Normal Gait, Oriented x3 - Psychiatric Exam Psychiatric exam: Normal Affect, Normal Mood - Skin Skin Exam: Dry, Intact, Normal Color, Warm Assessment and Plan (1) Urinary tract infection Status: Acute (2) COPD (chronic obstructive pulmonary disease) Status: Chronic - Assessment and Plan (Free Text) Assessment: afeb on IV Merrem day 3 c/o pain weak nad will need to cont IV Merrem
[2018-03-02 17:12] VITALS: BP 126/73; PULSE 107; RESP 20; TEMP 98; O2SAT 97
== END 2018-03-02 18:23 | DRG 191 ==
LOC: C.ER 13:01 → C.9E 16:10 → C.6T 18:52 → OBSVTOIN 02-27 10:29 → C.5S 03-01 10:58
PROVIDERS: ADMIT Internal Medicine Pulmonary Disease; ATTEND Internal Medicine Pulmonary Disease
DX: J44.1 Chronic obstructive pulmonary disease with (acute) exacerbation (principal); N39.0 Urinary tract infection, site not specified; B96.20 Unspecified Escherichia coli [E. coli] as the cause of diseases classified elsewhere; Z16.12 Extended spectrum beta lactamase (ESBL) resistance; E11.9 Type 2 diabetes mellitus without complications; F41.9 Anxiety disorder, unspecified; F32.9 Major depressive disorder, single episode, unspecified; G47.00 Insomnia, unspecified; R53.1 Weakness; N40.0 Benign prostatic hyperplasia without lower urinary tract symptoms; I10 Essential (primary) hypertension; E78.5 Hyperlipidemia, unspecified; Z87.891 Personal history of nicotine dependence; Z84.1 Family history of disorders of kidney and ureter; Z82.49 Family history of ischemic heart disease and other diseases of the circulatory system; Z79.82 Long term (current) use of aspirin